=== PATIENT | female | born 1965 | race American Indian/Alaskan Native ===

== ENCOUNTER 2016-12-03 11:28 | Emergency (ER) | payer MEDICAID ==
[2016-12-03 13:52] VITALS: BP 151/73
[2016-12-03] MEDS ORDERED: NORCO 5/325 PO ONE (14:27)
[2016-12-03] MEDS ORDERED: NACL 0.9% IR ONE (15:38)
[2016-12-03] MEDS ORDERED: BOOSTRIX IM ONE (15:38)
[2016-12-03] MEDS ORDERED: XYLOCAINE 1% MPF 5 mL INFILTRATI ONE (15:40)
--- NOTE | 2016-12-03 15:56 | XRay Report ---
RIGHT TIBIA AND FIBULA RADIOGRAPHS INDICATION: Pain, status post direct blow. COMPARISON: 02/21/2015 right ankle views. FINDINGS: AP and lateral radiographs again demonstrate tibial medullary nomi anchored by 2 proximal and 1 distal threaded screws. Stable old mid tibial and fibular shaft deformities. Intact ankle articulation. Advanced knee degenerative changes. Diffuse lower leg soft tissue swelling/edema not excluded. CONCLUSION: No acute right tibia or fibula radiographic abnormality with stable postsurgical and old posttraumatic changes with other findings, including knee degeneration and possible lower leg soft tissue swelling, as described. Please correlate. Thank you for the opportunity to participate in this patient's care.
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
== END 2016-12-03 16:48 | disposition home or self-care (01) ==
LOC: ED 11:28
DX: S81.811A Laceration without foreign body, right lower leg, initial encounter (principal); J45.909 Unspecified asthma, uncomplicated; F17.200 Nicotine dependence, unspecified, uncomplicated; I10 Essential (primary) hypertension; Z90.710 Acquired absence of both cervix and uterus; W45.8XXA Other foreign body or object entering through skin, initial encounter; Y93.89 Activity, other specified; Y99.8 Other external cause status; Y92.59 Other trade areas as the place of occurrence of the external cause
CPT/HCPCS: 90471; 90715

== ENCOUNTER 2017-03-22 18:34 | Emergency (ER) | payer MEDICAID ==
[2017-03-22 19:59] VITALS: BP 112/61
[2017-03-22 23:40] LABS: Basophils % (Auto) 0.5 % (0.0-1.8); Eosinophils # (Auto) 0.1 K/mm3 (0.0-0.4); Eosinophils % (Auto) 2.3 % (0.0-4.3); Hematocrit 44.3 % (30.3-42.9); Hemoglobin 14.8 gm/dl (10.1-14.3); Lymphocytes # (Auto) 2.5 K/mm3 (1.2-5.4); Mean Corpuscular HGB Conc 33 % (30-34); Mean Corpuscular Hemoglobin 33 pg (28-32); Mean Corpuscular Volume 98 fl (79-97); Monocytes # (Auto) 0.4 K/mm3 (0.0-0.8); Monocytes % (Auto) 7.1 % (0.0-7.3); Red Blood Count 4.51 M/mm3 (3.65-5.03); Red Cell Distribution Width 16.4 % (13.2-15.2)
[2017-03-22 23:44] LABS: Platelet Count 210 K/mm3 (140-440)
[2017-03-22 23:55] LABS: Alanine Aminotransferase 40 units/L (7-56); BUN/Creatinine Ratio 14; Blood Urea Nitrogen 10 mg/dL (7-17); Calcium 9.2 mg/dL (8.4-10.2); Hemolysis Index 9
[2017-03-23 00:14] LABS: Bilirubin,Urine MOD (Negative); Blood,Urine NEG (Negative); Color,Urine Amber (Yellow); Hyaline Casts,Urine 13 /LPF; Mucus,Urine 3+ /HPF; Nitrite,Urine NEG (Negative)
[2017-03-23 00:29] LABS: Ictotest,Urine Negative (Negative)
[2017-03-23] MEDS ORDERED: TORADOL IM ONE (00:37)
[2017-03-23] MEDS ORDERED: DELTASONE PO ONE (00:37)
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
== END 2017-03-23 02:10 | disposition home or self-care (01) ==
LOC: ED 18:34
DX: S39.012A Strain of muscle, fascia and tendon of lower back, initial encounter (principal); I10 Essential (primary) hypertension; J45.909 Unspecified asthma, uncomplicated; I25.2 Old myocardial infarction; F17.200 Nicotine dependence, unspecified, uncomplicated; X58.XXXA Exposure to other specified factors, initial encounter; Y93.89 Activity, other specified; Y92.89 Other specified places as the place of occurrence of the external cause; Y99.8 Other external cause status
CPT/HCPCS: 36415; 80053; 81001; 85025; 96372; 99283; J1885; J7512

== ENCOUNTER 2017-10-30 10:39 | Emergency (ER) | payer MEDICAID ==
[2017-10-30] MEDS ORDERED: ASPIRIN PO ONE (11:26)
[2017-10-30 12:07] LABS: Basophils % (Auto) 0.9 % (0.0-1.8); Eosinophils # (Auto) 0.1 K/mm3 (0.0-0.4); Eosinophils % (Auto) 2.5 % (0.0-4.3); Hematocrit 41.1 % (30.3-42.9); Hemoglobin 13.9 gm/dl (10.1-14.3); Lymphocytes % (Auto) 44.8 % (13.4-35.0); Mean Corpuscular HGB Conc 34 % (30-34); Mean Corpuscular Hemoglobin 32 pg (28-32); Mean Corpuscular Volume 96 fl (79-97); Monocytes # (Auto) 0.3 K/mm3 (0.0-0.8); Monocytes % (Auto) 7.4 % (0.0-7.3); Platelet Count 187 K/mm3 (140-440); Red Blood Count 4.28 M/mm3 (3.65-5.03); Red Cell Distribution Width 14.1 % (13.2-15.2)
[2017-10-30 12:26] LABS: BUN/Creatinine Ratio 14; Blood Urea Nitrogen 10 mg/dL (7-17); Calcium 10.4 mg/dL (8.4-10.2); Hemolysis Index 8
--- NOTE | 2017-10-30 15:55 | XRay Report ---
FINAL REPORT EXAM: XR CHEST 1V AP HISTORY: cough COMPARISON: None. TECHNIQUE: Single frontal view of the chest FINDINGS: The cardiomediastinal silhouette is normal in appearance. The lungs are clear without focal consolidation. There is no pleural effusion or pneumothorax. There is no acute soft tissue or osseous abnormality. IMPRESSION: No acute cardiopulmonary disease.
[2017-10-30] MEDS ORDERED: ASPIRIN ONE (15:56)
[2017-10-30] MEDS ORDERED: MORPHINE ONE (15:59)
[2017-10-30] MEDS ORDERED: FIORICET ONE (16:09)
[2017-10-30] MEDS ORDERED: TORADOL ONE (16:17)
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
[2017-10-30] MEDS ORDERED: TORADOL IM ONE (16:26)
[2017-10-30] MEDS ORDERED: FIORICET PO ONE (16:26)
[2017-10-30 16:37] VITALS: BP 143/79
== END 2017-10-30 16:39 | disposition home or self-care (01) ==
LOC: ED 10:39
DX: S80.12XA Contusion of left lower leg, initial encounter (principal); J06.9 Acute upper respiratory infection, unspecified; I11.0 Hypertensive heart disease with heart failure; J45.909 Unspecified asthma, uncomplicated; F17.200 Nicotine dependence, unspecified, uncomplicated; Z90.710 Acquired absence of both cervix and uterus; W18.09XA Striking against other object with subsequent fall, initial encounter; Y93.89 Activity, other specified; Y92.89 Other specified places as the place of occurrence of the external cause; Y99.8 Other external cause status
CPT/HCPCS: 36415; 71045; 80048; 84484; 85025; 93005; 93010; 96372; 99284; J1885; J2270

== ENCOUNTER 2019-07-20 18:59 | Emergency (ER) | payer MEDICAID ==
[2019-07-20 19:07] VITALS: BP 164/88
--- NOTE | 2019-07-20 20:44 | Event Note ---
ED Screening Note ED Screening Note: pt presents with left lower and upper dental pain that began 3 days ago has not seen a dentist in 5 years no fever no n/v/d pmhx htn, cva, [place] no allergies to meds
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
== END 2019-07-20 21:06 | disposition home or self-care (01) ==
LOC: ED 18:59
DX: K02.9 Dental caries, unspecified (principal); K04.7 Periapical abscess without sinus; L98.499 Non-pressure chronic ulcer of skin of other sites with unspecified severity; I25.2 Old myocardial infarction; I10 Essential (primary) hypertension; J45.909 Unspecified asthma, uncomplicated; F17.200 Nicotine dependence, unspecified, uncomplicated; Z90.710 Acquired absence of both cervix and uterus; Z98.890 Other specified postprocedural states; Z79.1 Long term (current) use of non-steroidal anti-inflammatories (NSAID); Z79.2 Long term (current) use of antibiotics; Z79.899 Other long term (current) drug therapy
CPT/HCPCS: 99282

== ENCOUNTER 2020-10-16 12:49 | Emergency (ER) | payer MEDICAID ==
[2020-10-16 13:58] VITALS: BP 122/82
--- NOTE | 2020-10-16 15:44 | Emergency Department Report ---
Chief Complaint: Dental/Oral Stated Complaint: TOOTHACHE PAIN Time Seen by Provider: 10/16/20 15:40 - HPI History of Present Illness: 55-year-old -Chinese female presents to the emergency room requesting to have her teeth pulled. Patient has been seen by a dentist brings in her Panorex and a prescription. Patient states that her dentist is not able to pull her tooth until December 01. Patient complains of pain. Patient is taking nothing for her discomfort. Patient denies any recent trauma. - Exam Vital Signs: Vital Signs 10/16/20 13:57 Temperature 98.3 F Pulse Rate 70 Respiratory 18 Rate Blood Pressure 122/82 O2 Sat by Pulse 98 Oximetry Physical Exam: Patient is alert and oriented x3 no acute distress nontoxic in appearance No swelling of her jaw or gum Effortless breath able to speak in complete sentences Ambulatory without difficulties MSE screening note: Focused history and physical exam performed. Due to findings the following was ordered: 55-year-old -Chinese female presents to the emergency room requesting to have her teeth pulled. Patient has been seen by a dentist brings in her Panorex and a prescription. Patient states that her dentist is not able to pull her tooth until December 01. Patient complains of pain. Patient is taking nothing for her discomfort. Patient denies any recent trauma. Discussed with patient that we do not pull teeth. Discussed with patient to follow-up with her dentist and informed him that she is in discomfort. Handout given of dental referrals for patient. Discussed with patient she can take ibuprofen Tylenol or naproxen for pain. ED Disposition for MSE Disposition: HOME / SELF CARE / HOMELESS Is pt being admited?: No Does the pt Need Aspirin: No Condition: Stable Additional Instructions: Recommend to follow-up her primary dentist. Handout given to patient for community resources for dental. Recommend Tylenol ibuprofen or Aleve for pain Referrals: [facility] [Outside] - 3-5 Days [facility] [Outside] - 3-5 Days [facility] [Outside] - 3-5 Days
== END 2020-10-16 16:11 | disposition home or self-care (01) ==
LOC: ED 12:49
DX: K08.89 Other specified disorders of teeth and supporting structures (principal)
CPT/HCPCS: 99281

== ENCOUNTER 2021-09-08 08:58 | Inpatient (IN) | payer MEDICAID ==
--- NOTE | 2021-09-08 09:33 | Consultation ---
Medications and Allergies Allergies Allergy/AdvReac Type Severity Reaction Status Date / Time No Known Allergies Allergy Verified 09/08/21 09:15 Home Medications Medication Instructions Recorded Confirmed Last Taken Type Lovastatin [Altoprev] 40 mg PO DAILY 01/12/16 01/12/16 Unknown History Amoxicillin/K Clav Tab [Augmentin 1 tab PO Q12HR #20 tab 01/14/16 Unknown Rx 875 mg] Aspirin EC [Halfprin EC] 81 mg PO QDAY #30 tablet.dr 01/14/16 Unknown Rx Clopidogrel [Plavix] 75 mg PO QDAY #30 tablet 01/14/16 Unknown Rx carvediloL [Coreg] 3.125 mg PO BID #60 tablet 01/14/16 Unknown Rx lisinopriL [Zestril TAB] 5 mg PO QDAY #30 tablet 01/14/16 Unknown Rx oxyCODONE /ACETAMINOPHEN [Percocet 1 tab PO BID PRN #10 tablet 01/14/16 Unknown Rx 5/325 mg] cephALEXin [Keflex] 500 mg PO TID #30 capsule 12/03/16 Unknown Rx Cyclobenzaprine [Flexeril] 10 mg PO QHS PRN #20 tablet 03/23/17 Unknown Rx Naproxen [Naprosyn] 500 mg PO BID PRN #30 tablet 03/23/17 Unknown Rx cephALEXin [Keflex] 500 mg PO BID 10 Days #14 capsule 10/30/17 Unknown Rx Acetaminophen [Tylenol] 650 mg PO Q8HR PRN #14 capsule 07/20/19 Unknown Rx Benzocaine/Menthol/Zinc Chlor 1 applicatio MM BID #1 gel..gram. 07/20/19 Unknown Rx [Orajel 3X Mouth Sores Gel] Ibuprofen [Motrin 600 MG tab] 600 mg PO Q8H PRN #14 tablet 07/20/19 Unknown Rx Penicillin Vk [Veetids TAB] 500 mg PO QID 7 Days #56 tablet 07/20/19 Unknown Rx Assessment and Plan [facility] Consult Note # Demographics Consult Type: Acute Stroke Level 2 (4.5-24 hrs) Patient Location: Emergency Room First Name: Carl Last Name: Ted Gender: Female Facility: [facility] Time of Initial Page (Eastern Time): 09/08/2021, 09:04 Time of Return Call (Eastern Time): 09/08/2021, 09:04 # HPI History: F on Tuesday started noting increased weakness (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 Also more slurring of speech. Fall yesterday. Context/Pre-existing conditions: pre-existing motor deficit right # Scores Time of exam and NIHSS ( Time): 09/08/2021, 09:29 Level of Consciousness 1a: [0] = Alert; keenly responsive LOC Questions 1b: [0] = Answers both questions correctly LOC Commands 1c: [0] = Performs both tasks correctly Best Gaze 2: [0] = Normal Visual 3: [0] = No visual loss Facial Palsy 4: [0] = Normal symmetrical movements Motor Arm Left 5a: [0] = No drift Motor Arm Right 5b: [0] = No drift Motor Leg Left 6a: [0] = No drift Motor Leg Right 6b: [1] = Drift Limb Ataxia 7: [0] = Absent Sensory 8: [0] = Normal Best Language 9: [0] = No aphasia Dysarthria 10: [1] = [id number] dysarthria Extinction and Inattention 11: [0] = No abnormality NIHSS Total: 2 # Data Time Head CT personally read by me ( Time): 09/08/2021, 09:[address]: no bleed preliminarily reviewed by me, please refer to radiology read for official reading # Assessment Impression: Altered Mental Status no new focal neurologic deficit can be appreciated, and patient not reporting, though she is weaker and speech is more slurred than baseline she reports. This could be encephalopathy due to medical illness superimposed on prior neurologic deficit making that deficit worse. # Plan Thrombolytic/Intervention: NOT IV Thrombolysis or IA Intervention candidate Thrombolytic Exclusion (< 3 hour window): time of onset unclear Thrombolytic Exclusion: > 4.5 hours Intraarterial Exclusion: gradual onset starting 4d ago reportedly, not clinically consistent with new LVO stroke. Medication: aspirin 81 mg daily start statin with goal of LDL < 70 Other: telemetry monitoring I have discussed my recommendations with the referring provider Additional Recommendations: if no medical etiology found to explain her gradual worsening, or if not improving with medical management as expected, considering my brain to evaluate for new stroke. Disposition: admit # Logistics Telemedicine: Interactive 2 way audio and visual telecommunication technology was utilized during this visit
--- NOTE | 2021-09-08 09:48 | XRay Report ---
CHEST 1 VIEW 09/08/2021 9:32 AM INDICATION / CLINICAL INFORMATION: Stroke symptoms, slurred speech. COMPARISON: One view of the chest from 10/30/2017. FINDINGS: SUPPORT DEVICES: None. HEART / MEDIASTINUM: No significant abnormality. LUNGS / PLEURA: No significant pulmonary abnormality. No significant pleural effusion. No pneumothora x. ADDITIONAL FINDINGS: No significant additional findings. IMPRESSION: 1. No acute abnormality of the chest. Signer Name: Casey Garcia MD Signed: 09/08/2021 9:44 AM Workstation Name: [email or web address]
--- NOTE | 2021-09-08 09:56 | Cat Scan Report ---
NONENHANCED CT SCAN OF THE HEAD: INDICATION / CLINICAL INFORMATION: 55 years Female; stroke like; slurred speech. TECHNIQUE: Routine CT head without contrast. All CT scans at this location are performed using CT dos e reduction for ALARA by means of automated exposure control. 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 ORBITS: No significant abnormality of visualized orbits. SINUSES / MASTOIDS: No significant abnormality of the visualized paranasal sinuses or mastoid air amadou ls. ADDITIONAL FINDINGS: None. IMPRESSION: No intracerebral hemorrhage or stroke mimics Encephalomalacia in the inferior right frontal lobe from old trauma Chronic lacunae in the left basal ganglia; periventricular low-attenuation areas due to chronic small vessel disease Signer Name: Shola Chauhan MD Signed: 09/08/2021 9:49 AM Workstation Name: [id number]
--- NOTE | 2021-09-08 10:57 | Electrocardiograph Report ---
[facility] Test Date: 2021-09-08 Test Time: 10:25:26 Pat Name: USHA SANCHEZ Department: Room: Gender: F [employer]: TV : 1965 Requested By: ELMO MILNER Order Number: [id number] Reading MD: Bear Kessler Measurements Intervals [place] Rate: 53 P: 37 WV: 190 QRS: -1 QRSD: 97 T: 25 QT: 431 QTc: 405 Interpretive Statements Sinus bradycardia No previous ECG available for comparison Electronically Signed On 09-08-2021 10:57:09 EDT by Bear Kessler
[2021-09-08 11:20] LABS: Color,Urine Yellow (Yellow)
[2021-09-08 11:21] LABS: Bilirubin,Urine Negative (Negative); Blood,Urine Negative (Negative)
[2021-09-08 11:22] LABS: PH,Urine 6.5 (5.0-7.0); Protein,Urine <30 mg dL mg/dL (Negative); Urobilinogen,Urine < 2.0 mg/dL (<2.0)
[2021-09-08 11:29] LABS: Hematocrit 34.3 % (30.3-42.9); Hemoglobin 11.8 gm/dl (10.1-14.3); Mean Corpuscular HGB Conc 35 % (30-34); Mean Corpuscular Volume 92 fl (79-97); Platelet Count 204 K/mm3 (140-440); Red Blood Count 3.71 M/mm3 (3.65-5.03); Red Cell Distribution Width 14.1 % (13.2-15.2)
[2021-09-08 11:31] LABS: INR 0.87 (0.87-1.13)
[2021-09-08 11:32] LABS: Partial Thromboplastin Time 29.4 Sec. (24.2-36.6)
[2021-09-08 11:35] LABS: Bacteria,Urine 4+ /HPF (Negative); Hyaline Casts,Urine 7 /LPF; Mucus,Urine 2+ /HPF
[2021-09-08 11:48] LABS: Alanine Aminotransferase 28 units/L (7-56); Albumin 3.6 g/dL (3.9-5); BUN/Creatinine Ratio 20; Blood Urea Nitrogen 16 mg/dL (7-17); Calcium 8.7 mg/dL (8.4-10.2); HDL Cholesterol 74 mg/dL (40-59); Hemolysis Index 8; LDL Cholesterol,Direct 161 mg/dL (50-130)
[2021-09-08 13:03] LABS: Amphetamine Screen,Urine Negative; Benzodiazepines Screen,Urine Negative; Cocaine Screen,Urine Negative; Methadone Screen,Urine Negative; Opiate Screen,Urine Negative
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
[2021-09-08 13:17] LABS: Cannabinoid Screen,Urine Positive
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
[2021-09-08] MEDS ORDERED: oxyCODONE /ACETAMINOPHEN 5-325MG TAB PO PRN (17:25)
[2021-09-08] MEDS ORDERED: CYCLOBENZAPRINE 10 MG TAB PO PRN (17:25)
[2021-09-08] MEDS ORDERED: NON-FORMULARY EACH (Acetaminophen [Tylenol] 325 MG Capsule) PO PRN (17:25)
[2021-09-08] MEDS ORDERED: IBUPROFEN 600 MG TAB PO PRN (17:25)
[2021-09-08] MEDS ORDERED: ACETAMINOPHEN 325 MG TAB PO PRN ×3 (17:43→18:53)
[2021-09-08] MEDS ORDERED: ONDANSETRON 4 MG/2 ML INJ IV PRN (18:53)
[2021-09-08] MEDS ORDERED: MORPHINE 2 MG/1 ML INJ IV PRN (18:59)
[2021-09-08] MEDS ORDERED: SODIUM CHLORIDE 0.9% 1000 ML 1,000 ML IV SCH (19:00)
[2021-09-09] MEDS: ASPIRIN 325 MG TAB PO SCH ×2 (01:32→09:11)
[2021-09-09] MEDS: HEPARIN 5,000 UNIT/1 ML VIAL SUB-Q SCH ×3 (01:33→23:30)
[2021-09-09] MEDS: CLOPIDOGREL 75 MG TAB PO SCH ×2 (01:33→09:12)
[2021-09-09] MEDS: carvediloL 3.125 MG TAB PO SCH ×3 (01:33→23:30)
[2021-09-09] MEDS ORDERED: POTASSIUM CHLORIDE ER 20 MEQ TAB PO NR (06:57)
[2021-09-09] MEDS: FAMOTIDINE 20 MG TAB PO SCH ×3 (07:56→23:30)
[2021-09-09 08:15] LABS: Basophils % (Auto) 0.7 % (0.0-1.8); Eosinophils # (Auto) 0.1 K/mm3 (0.0-0.4); Hematocrit 34.5 % (30.3-42.9); Hemoglobin 11.3 gm/dl (10.1-14.3); Lymphocytes # (Auto) 2.3 K/mm3 (1.2-5.4); Lymphocytes % (Auto) 47.9 % (13.4-35.0); Mean Corpuscular HGB Conc 33 % (30-34); Mean Corpuscular Volume 94 fl (79-97); Monocytes # (Auto) 0.3 K/mm3 (0.0-0.8); Platelet Count 185 K/mm3 (140-440); Red Blood Count 3.66 M/mm3 (3.65-5.03); Red Cell Distribution Width 13.9 % (13.2-15.2)
[2021-09-09 08:52] LABS: Alanine Aminotransferase 32 units/L (7-56); Albumin 3.3 g/dL (3.9-5); Blood Urea Nitrogen 17 mg/dL (7-17); Calcium 8.6 mg/dL (8.4-10.2); Hemolysis Index 2
[2021-09-09 09:10] LABS: BUN/Creatinine Ratio 28
[2021-09-09] MEDS: LISINOPRIL 5 MG TAB PO SCH (09:12)
--- NOTE | 2021-09-09 09:50 | Consultation ---
History of Present Illness Consult date: 09/09/21 Reason for Consult: cva Chief complaint: worsening right-sided weakness w/ slurred speech History of present illness: 55 yo right-handed, female with hx of multiple strokes with residual right-sided weakness, htn, who presents with worsening right-sided weakness with slurring of speech. She notes that her speech has improved this moring but notes still some worse (than baseline) weakness / numbness of her right arm>leg. She notes her right leg dragging at times and unsteadiness on her feet. Past History Past Medical History: hypertension, stroke Past Surgical History: Other (right hip surgery;) Social history: no significant social history, other (no current tobacco but positive remote tobacco many years ago; no alcohol; no recreational drugs;) Family history: no significant family history, hypertension Medications and Allergies Allergies Allergy/AdvReac Type Severity Reaction Status Date / Time No Known Allergies Allergy Verified 09/08/21 09:15 Home Medications Medication Instructions Recorded Confirmed Last Taken Type Amlodipine Besylate 5 mg PO DAILY 09/09/21 09/09/21 09/08/21 08:00 History Amlodipine Besylate [Norvasc] 5 mg PO DAILY 09/09/21 09/09/21 09/08/21 08:00 History Calcium Acetate 1 cap PO DAILY 09/09/21 09/09/21 09/08/21 08:00 History Coreg 3.125 mg BID 09/09/21 09/09/21 09/08/21 17:00 History Furosemide [Lasix TAB] 40 mg PO DAILY 09/09/21 09/09/21 09/08/21 17:00 History Ibuprofen [Motrin 800 MG tab] 800 mg PO TID 09/09/21 09/09/21 09/08/21 17:00 History Loratadine 10 mg PO DAILY 09/09/21 09/09/21 09/08/21 08:00 History Meloxicam 15 mg PO DAILY 09/09/21 09/09/21 09/08/21 17:00 History Metformin HCl 1 tab PO DAILY 09/09/21 09/09/21 09/08/21 08:00 History Promethazine Dm (Nf) 10 mg PO Q6HR 09/09/21 09/09/21 09/08/21 17:00 History Terbinafine 250 mg PO DAILY 09/09/21 09/09/21 09/08/21 08:00 History Vitamin D (Nf) 50,000 units PO DAILY 09/09/21 09/09/21 09/08/21 08:00 History traMADoL [Ultram] 50 mg PO QID PRN 09/09/21 09/09/21 09/08/21 17:00 History Active Meds: Active Medications Acetaminophen (Acetaminophen 325 Mg Tab) 650 mg PO Q4H PRN PRN Reason: Pain MILD(1-3)/Fever >100.5/URBINA Aspirin (Aspirin 325 Mg Tab) 325 mg PO QDAY [facility] Last Admin: 09/09/21 09:11 Dose: 325 mg Atorvastatin Calcium (Atorvastatin 40 Mg Tab) 40 mg PO QHS [facility] Last Admin: 09/09/21 07:56 Dose: Not Given Carvedilol (Carvedilol 3.125 Mg Tab) 3.125 mg PO BID [facility] Last Admin: 09/09/21 09:11 Dose: 3.125 mg Clopidogrel Bisulfate (Clopidogrel 75 Mg Tab) 75 mg PO QDAY [facility] Last Admin: 09/09/21 09:12 Dose: 75 mg Cyclobenzaprine HCl (Cyclobenzaprine 10 Mg Tab) 10 mg PO QHS PRN PRN Reason: Muscle Spasm Famotidine (Famotidine 20 Mg Tab) 20 mg PO BID [facility] Last Admin: 09/09/21 09:12 Dose: 20 mg Heparin Sodium (Porcine) (Heparin 5,000 Unit/1 Ml Vial) 5,000 unit SUB-Q Q12HR [facility] Last Admin: 09/09/21 09:12 Dose: 5,000 unit Ceftriaxone Sodium (Rocephin/Ns 1 Gm/50 Ml) 1 gm in 50 mls @ 100 mls/hr IV Q24H [facility]; Protocol Stop: 09/11/21 09:29 Ibuprofen (Ibuprofen 600 Mg Tab) 600 mg PO Q8H PRN PRN Reason: Pain, Mild (1-3) Lisinopril (Lisinopril 5 Mg Tab) 5 mg PO QDAY [facility] Last Admin: 09/09/21 09:12 Dose: 5 mg Lorazepam (Lorazepam 2 Mg Tab) 2 mg PO NOW [facility] Last Admin: 09/09/21 09:36 Dose: 2 mg Morphine Sulfate (Morphine 2 Mg/1 Ml Inj) 2 mg IV Q4H PRN PRN Reason: Pain, Moderate (4-6) Ondansetron HCl (Ondansetron 4 Mg/2 Ml Inj) 4 mg IV Q8H PRN PRN Reason: Nausea And Vomiting Oxycodone/Acetaminophen (Oxycodone /Acetaminophen 5-325mg Tab) 1 tab PO BID PRN PRN Reason: Pain, Moderate (4-6) Potassium Chloride (Potassium Chloride Er 20 Meq Tab) 20 meq PO ONCE NR Stop: 09/09/21 12:00 Sodium Chloride (Sodium Chloride 0.9% 10 Ml Flush Syringe) 10 ml IV BID [facility] Last Admin: 09/09/21 09:12 Dose: 10 ml Sodium Chloride (Sodium Chloride 0.9% 10 Ml Flush Syringe) 10 ml IV PRN PRN PRN Reason: LINE FLUSH Sodium Chloride (Sodium Chloride 0.9% 10 Ml Flush Syringe) 10 ml IV PRN PRN PRN Reason: LINE FLUSH Review of Systems All systems: negative (as per hpi;) Physical Examination - Vital Signs Vital Signs: Vital Signs Temp Pulse Resp BP Pulse Ox 98.1 F 54 L 15 171/77 99 09/08/21 09:56 09/08/21 09:56 09/08/21 09:56 09/08/21 09:56 09/08/21 09:56 - Physical Exam Narrative exam: ?left decreased nlf (droop) 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-/5 strength Gen: nad, well-nourished; Head: normocephalic; Eyes: no gaze deviation; no ptosis; ENT: normal vocalization; CVS: warm and well-perfused; Pulm: no respiratory distress; GI: appears non-distended; Ext: no cyanosis appreciated at distal extremities; Skin: no acute rash at distal extremities; Heme: no pathologic ecchymosis appreciated at distal extremities; Neuro: alert, oriented to name, age, year, not month (September), no dysarthria, no aphasia, CN 2 - PERRL, visual rodas grossly intact, CN 3, 4, 6 - EOMI, CN 5 - facial sensation symmetric to light touch, CN 7 - facial movement with decreased left NLF, CN 8 - hearing grossly intact, CN 9, 10 - uvula midline, CN 11 symmetric shoulder movement, CN 12 - tongue midline; Motor - at least 4-/5 at BUEs distally and at right leg o/w 4+/5 at all other exts; Sensory - light touch symmetric, Cerebellar - fnf /hts intact, Gait - deferred secondary to fall risk; NIHSS (1a.) Level of Consciousness:0 (1b.) LOC Questions:1 (1c.) LOC Commands:0 (2.) Best Gaze:0 (3.) Visual:0 (4.) Facial Palsy:1 (5a.) Motor Arm, Left:0 (5b.) Motor Arm, Right:0 (6a.) Motor Leg, Left:0 (6b.) Motor Leg, Right:0 (7.) Limb Ataxia:0 (8.) Sensory:0 (9.) Best Language:0 (10.) Dysarthria:0 (11.) Extinction and Inattention:0 NIHSS Total Score: 2 Results - Laboratory Findings CBC and BMP: 09/09/21 05:08 09/10/21 04:12 Abnormal Lab Findings: Abnormal Labs 09/08/21 09/08/21 09/08/21 09:29 09:29 09:48 MCHC 35 H Lymph % (Auto) Potassium 3.3 L Chloride Glucose 109 H POC Glucose Total Protein 6.0 L Albumin 3.6 L Cholesterol 230 H LDL Cholesterol Direct 161 H HDL Cholesterol 74 H Urine WBC (Auto) 34.0 H U Epithel Cells (Auto) 57.0 H 09/08/21 09/08/21 09/09/21 09:55 17:41 05:08 MCHC Lymph % (Auto) 47.9 H Potassium Chloride Glucose POC Glucose 66 L 126 H Total Protein Albumin Cholesterol LDL Cholesterol Direct HDL Cholesterol Urine WBC (Auto) U Epithel Cells (Auto) 09/09/21 05:08 MCHC Lymph % (Auto) Potassium Chloride 111.6 H Glucose POC Glucose Total Protein 5.6 L Albumin 3.3 L Cholesterol LDL Cholesterol Direct HDL Cholesterol Urine WBC (Auto) U Epithel Cells (Auto) Assessment and Plan 55 yo right-handed, female with hx of multiple strokes with residual right-sided weakness, htn, who presents with worsening right-sided weakness with slurring of speech. She notes that her speech has improved this moring but notes still some worse (than baseline) weakness / numbness of her right arm>leg. 1. Acute Ischemic Stroke vs. Recrudescence of Old CVA: ASA 325 mg PO qday, MRI Brain w/ w/o contrast, TTEcho, CUS, confirm LDL/TSH/Covid-19/UDS/UA, telemetry, NIHSS q4 hours; SBP goal 160-200 mmHg and DBP 80-100 mmHg until MR results available. Statin therapy for a goal LDL of 70, when patient passes swallow evaluation. PT/OT/ST/Swallow evaluation. Long-term risk-factor modification, including a strict diet/exercise regimen for secondary stroke prophylaxis. Stroke education prior to discharge. 2. Hypertension - goal SBP 160-200 mmHg and DBP 80-100 mmHg until MR results available. 3. Acute on Chronic Right-sided weakness - pt/ot evaluation/monitoring. 4. Right-sided Numbness - pt/ot evaluation/monitoring. 5. Unsteady Gait - pt/ot evaluation/monitoring. Darryn Perez MD Neurology [id number]
[2021-09-09] MEDS ORDERED: LORazepam 2 MG/ML VIAL IV SCH (10:00)
[2021-09-09] MEDS ORDERED: ASPIRIN EC 81 MG TAB PO SCH (10:00)
[2021-09-09] MEDS ORDERED: LORazepam 2 MG TAB PO SCH (10:00)
[2021-09-09] MEDS ORDERED: NON-FORMULARY EACH (Lovastatin [Altoprev] 40 MG Tab.Er.24h) PO SCH (10:00)
--- NOTE | 2021-09-09 13:24 | Vascular Lab Report ---
"DUPLEX DOPPLER ULTRASOUND CAROTID, BILATERAL INDICATION / CLINICAL INFORMATION: cva. COMPARISON: None available. FINDINGS: RIGHT CAROTID: - PLAQUE ESTIMATE (%): < 50% - CCA velocity: 64 cm/sec. - ICA peak systolic velocity: 72 cm/sec. - ICA/CCA PSV Ratio: 1.1 Right Vertebral Artery: Antegrade flow. LEFT CAROTID: - PLAQUE ESTIMATE: > 50% - CCA velocity: 53 cm/sec. - ICA peak systolic velocity: 108 cm/sec. - ICA/CCA PSV Ratio: 2.04 Left Vertebral Artery: Antegrade flow. IMPRESSION: 1. Right Internal Carotid Artery: Less than 50% diameter stenosis. 2. Left Internal Carotid Artery: 50-69% diameter stenosis. Velocity criteria are extrapolated from diameter data as defined by the Society of Radiologists [place] [facility] [facility] Consensus Conference, Radiology 2003; 229;[id number]. Degree of || ICA PSV || Plaque || ICA/CCA Stenosis (%) || (cm/sec) || estimate (%) || PSV Ratio Normal ............. || ...<125........... || ...None......... || ...<2.0 <50................... || ...<125........... || ......<50......... || ...<2.0 50-69................ || ..125-230...... || ......>50......... || 2.0-4.0 >70 but <100... || >230.............. || .......>50........ || ...>4.0 Near occlusion || High/low/none || ...visible....... || variable Total occlusion || ....None........... || ..no lumen... || ....N/A Signer Name: Kartik Foote MD Signed: 09/09/2021 1:20 PM Workstation Name: [facility] [id number]"
[2021-09-09] MEDS: cefTRIAXone/NS 1 GM/50 ML 1 GM/50 ML BAG IV SCH (13:28)
--- NOTE | 2021-09-09 16:24 | Progress Note ---
Assessment and Plan Assessment and plan: #Possible acute ischemic CVA #History of multiple ischemic CVAs #Medicine noncompliance Status post aspirin 325 mg x 1 in the ED. Continue aspirin 81 mg daily + Plavix 75 mg daily + atorvastatin [address] head noncontrast. Pending MRI brain without contrast. Carotid Doppler ultrasound revealing <50% diameter stenosis of right ICA and 50-69% diameter stenosis in left ICA. Neurology consulted; pending recs Pending TTE to evaluate for possible atrial fibrillation or PFO. Physical therapy, Occupational Therapy, and speech therapy consulted. #Acute cystitis without hematuria Urinalysis revealing positive nitrite, trace leukocyte esterase, WBC 34, 4+ bacteria Urine culture revealing gram-negative rods. Pending speciation. Continue Rocephin 1 g daily (started 09/09/2021). #Hypokalemiaresolved #Hypertension - home medications: Amlodipine 5 mg daily, Coreg 3.125 mg twice daily, p.o. Lasix 40 mg daily - current medications: Currently holding to allow permissive hypertension in the setting of possible acute ischemic CVA. - SBP goal <160 and DBP goal <90 while inpatient - continue to monitor #Non-insulin dependent type II diabetes mellitus - hemoglobin A1c: Pending - home regimen: Metformin 1 tab twice daily - current regimen: Moderate SSI - blood glucose goal 140-180 while inpatient - continue to monitor #Mild protein caloric malnutrition Albumin 3.3 Starting dietary supplementation #Morbid obesity #Weight loss counseling #Exercise counseling - BMI 37.4 - Counseled patient on the importance of weight loss, incorporating exercise, and dietary changes (lean meats, fresh fruits and vegetables, and water intake). Patient expresses understanding. - Time: +15 min #Polysubstance dependence -Patient engages in the following substances: Marijuana positive in UDS -Counseled patient about the importance of cessation of substance abuse. Offered resources to help with quitting. Patient expresses understanding. -Time: +15 mins #Advanced care planning -Disease education conducted, care plan discussed, diagnoses discussed, prognosis discussed, and patient acknowledges understanding with care plan -Time: +30 min Disposition Plan: Continue medical management Total Time Spent with Patient (Minutes): 45 minutes History Interval history: No acute events overnight. Hospitalist Physical - Constitutional Vitals: Temp Pulse Resp BP Pulse Ox 98.3 F 68 14 113/64 99 09/09/21 04:21 09/09/21 08:40 07/27/22 08:40 09/09/21 08:40 09/09/21 12:00 General appearance: Present: no acute distress, well-nourished, obese - EENT Eyes: Present: PERRL, EOM intact ENT: hearing intact, clear oral mucosa, dentition normal - Neck Neck: Present: supple, normal ROM - Respiratory Respiratory effort: normal Respiratory: bilateral: CTA - Cardiovascular Rhythm: regular Heart Sounds: Present: S1 & S2 - Extremities Extremities: no ischemia, pulses intact, pulses symmetrical, No edema, normal temperature, normal color Peripheral Pulses: within normal limits - Abdominal General gastrointestinal: soft, non-tender, non-distended, normal bowel sounds - Integumentary Integumentary: Present: clear, warm, dry - Psychiatric Psychiatric: appropriate mood/affect, intact judgment & insight, cooperative - Neurologic Neurologic: CNII-XII intact, other (Right-sided weakness) - Allied Health Allied health notes reviewed: nursing HEART Score - HEART Score Troponin: Troponin T < 0.010 ng/mL (0.00-0.029) 09/08/21 09:29 Results - Labs CBC & Chem 7: 09/09/21 05:08 09/09/21 05:08 Labs: Laboratory Last Values WBC 4.9 K/mm3 (4.5-11.0) 09/09/21 05:08 RBC 3.66 M/mm3 (3.65-5.03) 09/09/21 05:08 Hgb 11.3 gm/dl (10.1-14.3) 09/09/21 05:08 Hct 34.5 % (30.3-42.9) 09/09/21 05:08 MCV 94 fl (79-97) 09/09/21 05:08 MCH 31 pg (28-32) 09/09/21 05:08 MCHC 33 % (30-34) 09/09/21 05:08 RDW 13.9 % (13.2-15.2) 09/09/21 05:08 Plt Count 185 K/mm3 (140-440) 09/09/21 05:08 Lymph % (Auto) 47.9 % (13.4-35.0) H 09/09/21 05:08 [place] % (Auto) 6.0 % (0.0-7.3) 09/09/21 05:08 Eos % (Auto) 2.0 % (0.0-4.3) 09/09/21 05:08 Baso % (Auto) 0.7 % (0.0-1.8) 09/09/21 05:08 Lymph # (Auto) 2.3 K/mm3 (1.2-5.4) 09/09/21 05:08 [place] # (Auto) 0.3 K/mm3 (0.0-0.8) 09/09/21 05:08 Eos # (Auto) 0.1 K/mm3 (0.0-0.4) 09/09/21 05:08 Baso # (Auto) 0.0 K/mm3 (0.0-0.1) 09/09/21 05:08 Seg Neutrophils % 43.4 % (40.0-70.0) 09/09/21 05:08 Seg Neutrophils # 2.1 K/mm3 (1.8-7.7) 09/09/21 05:08 PT 12.8 Sec. (12.2-14.9) 09/08/21 09:29 INR 0.87 (0.87-1.13) 09/08/21 09:29 APTT 29.4 Sec. (24.2-36.6) 09/08/21 09:29 Sodium 143 mmol/L (137-145) 09/09/21 05:08 Potassium 3.8 mmol/L (3.6-5.0) 09/09/21 05:08 Chloride 111.6 mmol/L (98-107) H 09/09/21 05:08 Carbon Dioxide 24 mmol/L (22-30) 09/09/21 05:08 Anion Gap 11 mmol/L 09/09/21 05:08 BUN 17 mg/dL (7-17) 09/09/21 05:08 Creatinine 0.6 mg/dL (0.6-1.2) 09/09/21 05:08 Estimated GFR > 60 ml/min 09/09/21 05:08 BUN/Creatinine Ratio 28 % 09/09/21 05:08 Glucose 85 mg/dL (65-100) 09/09/21 05:08 POC Glucose 126 mg/dL (70-105) H 09/08/21 17:41 Hemoglobin A1c 5.5 % (4-6) 09/09/21 08:18 Calcium 8.6 mg/dL (8.4-10.2) 09/09/21 05:08 Magnesium 1.90 mg/dL (1.7-2.3) 09/08/21 09:29 Total Bilirubin < 0.20 mg/dL (0.1-1.2) 09/09/21 05:08 AST 34 units/L (5-40) 09/09/21 05:08 ALT 32 units/L (7-56) 09/09/21 05:08 Alkaline Phosphatase 87 units/L (35-129) 09/09/21 05:08 Troponin T < 0.010 ng/mL (0.00-0.029) 09/08/21 09:29 NT-Pro-B Natriuret Pep 146.7 pg/mL (0-900) 09/08/21 09:29 Total Protein 5.6 g/dL (6.3-8.2) L 09/09/21 05:08 Albumin 3.3 g/dL (3.9-5) L 09/09/21 05:08 Albumin/Globulin Ratio 1.4 % 09/09/21 05:08 Triglycerides 104 mg/dL (2-149) 09/08/21 09:29 Cholesterol 230 mg/dL (50-199) H 09/08/21 09:29 LDL Cholesterol Direct 161 mg/dL (50-130) H 09/08/21 09:29 HDL Cholesterol 74 mg/dL (40-59) H 09/08/21 09:29 Cholesterol/HDL Ratio 3.10 % 09/08/21 09:29 Urine Color Yellow (Yellow) 09/08/21 09:48 Urine Turbidity Cloudy (Clear) 09/08/21 09:48 Urine pH 6.5 (5.0-7.0) 09/08/21 09:48 Ur Specific [place] 1.015 (1.003-1.030) 09/08/21 09:48 Urine Protein <30 mg dl mg/dL (Negative) 09/08/21 09:48 Urine Glucose (UA) Negative mg/dL (Negative) 09/08/21 09:48 Urine Ketones Negative mg/dL (Negative) 09/08/21 09:48 Urine Blood Negative (Negative) 09/08/21 09:48 Urine Nitrite Positive (Negative) 09/08/21 09:48 Urine Bilirubin Negative (Negative) 09/08/21 09:48 Urine Urobilinogen < 2.0 mg/dL (<2.0) 09/08/21 09:48 Ur Leukocyte Esterase Trace (Negative) 09/08/21 09:48 Urine WBC (Auto) 34.0 /HPF (0.0-6.0) H 09/08/21 09:48 Urine RBC (Auto) 16.0 /HPF (0.0-6.0) 09/08/21 09:48 U Epithel Cells (Auto) 57.0 /HPF (0-13.0) H 09/08/21 09:48 Urine Bacteria (Auto) 4+ /HPF (Negative) 09/08/21 09:48 Hyaline Casts 7 /LPF 09/08/21 09:48 Urine Mucus 2+ /HPF 09/08/21 09:48 Urine Opiates Screen Negative 09/08/21 09:48 Urine Methadone Screen Negative 09/08/21 09:48 Ur Barbiturates Screen Negative 09/08/21 09:48 Ur Phencyclidine Scrn Negative 09/08/21 09:48 Ur Amphetamines Screen Negative 09/08/21 09:48 U Benzodiazepines Scrn Negative 09/08/21 09:48 Urine Cocaine Screen Negative 09/08/21 09:48 U Marijuana (THC) Screen Positive 09/08/21 09:48 Drugs of Abuse Note Disclamer 09/08/21 09:48 Microbiology: Microbiology 09/09/21 08:18 Peripheral/Venous Blood Culture - Preliminary Culture in Progress 09/09/21 09:18 Peripheral/Venous Blood Culture - Preliminary Culture in Progress 09/08/21 09:48 Urine,Clean Catch Urine Culture - Preliminary Gram Negative Trent Solano/IV: Voiding Method Toilet Active Medications - Current Medications Current Medications: Generic Name Dose Route Start Last Admin Trade Name Freq PRN Reason Stop Dose Admin Acetaminophen 650 mg 09/08/21 18:53 Acetaminophen 325 Mg Tab PO Q4H PRN Pain MILD(1-3)/Fever >100.5/URBINA Aspirin 325 mg 09/08/21 20:00 09/09/21 09:11 Aspirin 325 Mg Tab PO 325 mg QDAY [facility] Administration Atorvastatin Calcium 40 mg 09/08/21 22:00 09/09/21 07:56 Atorvastatin 40 Mg Tab PO Not Given QHS [facility] Carvedilol 3.125 mg 09/08/21 22:00 09/09/21 09:11 Carvedilol 3.125 Mg Tab PO 3.125 mg BID [facility] Administration Clopidogrel Bisulfate 75 mg 09/08/21 18:00 09/09/21 09:12 Clopidogrel 75 Mg Tab PO 75 mg QDAY [facility] Administration Cyclobenzaprine HCl 10 mg 09/08/21 17:25 Cyclobenzaprine 10 Mg Tab PO QHS PRN Muscle Spasm Famotidine 20 mg 09/08/21 22:00 09/09/21 09:12 Famotidine 20 Mg Tab PO 20 mg BID [facility] Administration Heparin Sodium (Porcine) 5,000 unit 09/08/21 22:00 09/09/21 09:12 Heparin 5,000 Unit/1 Ml Vial SUB-Q 5,000 unit Q12HR [facility] Administration Ceftriaxone Sodium 1 gm in 50 mls @ 100 mls/hr 09/09/21 09:00 09/09/21 13:28 Rocephin/Ns 1 Gm/50 Ml IV 09/11/21 09:29 100 mls/hr Q24H [facility] Administration Protocol Ibuprofen 600 mg 09/08/21 17:25 Ibuprofen 600 Mg Tab PO Q8H PRN Pain, Mild (1-3) Lisinopril 5 mg 09/09/21 10:00 09/09/21 09:12 Lisinopril 5 Mg Tab PO 5 mg QDAY [facility] Administration Lorazepam 2 mg 09/09/21 10:00 09/09/21 09:36 Lorazepam 2 Mg Tab PO 2 mg NOW [facility] Administration Morphine Sulfate 2 mg 09/08/21 18:59 Morphine 2 Mg/1 Ml Inj IV Q4H PRN Pain, Moderate (4-6) Ondansetron HCl 4 mg 09/08/21 18:53 Ondansetron 4 Mg/2 Ml Inj IV Q8H PRN Nausea And Vomiting Oxycodone/Acetaminophen 1 tab 09/08/21 17:25 Oxycodone /Acetaminophen 5-325mg Tab PO BID PRN Pain, Moderate (4-6) Sodium Chloride 10 ml 09/08/21 22:00 09/09/21 09:12 Sodium Chloride 0.9% 10 Ml Flush Syringe IV 10 ml BID [facility] Administration Sodium Chloride 10 ml 07/26/22 18:53 Sodium Chloride 0.9% 10 Ml Flush Syringe IV PRN PRN LINE FLUSH
--- NOTE | 2021-09-09 17:57 | Magnetic Resonance Report ---
MR brain wo con INDICATION / CLINICAL INFORMATION: 55 years Female; stroke. TECHNIQUE: Multiplanar, multisequence MR images of the brain were obtained. Note, no FLAIR sequence was performe d. Motion artifact. COMPARISON: CT-09/08/2021 FINDINGS: BRAIN / INTRACRANIAL CONTENTS: 8 mm focus of acute/subacute ischemia seen in the stewart, leftward of mi dline. Older lacunar infarct is seen in the stewart rightward of midline. There are also lacunar infarcts in th e left basal ganglia, which may have had a hemorrhagic component, given the decreased gradient echo T 2 signal identified in this region. Old focus of microhemorrhage versus small cavernous malformation in the posterior putamen on the righ t. Encephalomalacia seen anteriorly in the right frontal lobe and minimally in the anteromedial left fro ntal lobe-please clinically correlate. Would question prior trauma Otherwise, no acute hemorrhage, mass effect, midline shift, hydrocephalus, or acute, large territori al infarct. Mild, diffuse cerebral and cerebellar atrophy noted. There are moderate areas of increased signal intensity on T2 imaging in the white matter of the cereb ral hemispheres. These are nonspecific findings and may be related to microangiopathy (hypertension, diabetes, atherosclerosis), given the patient's age. CRANIOCERVICAL JUNCTION: No significant abnormality. VASCULAR FLOW-VOIDS: No significant abnormality. ORBITS: No significant abnormality of visualized orbits. SINUSES / MASTOIDS: No significant abnormality in the visualized paranasal sinuses or mastoid air amadou ls. ADDITIONAL FINDINGS: None. IMPRESSION: 1. Acute/early subacute ischemia in the stewart leftward of midline. No signs of hemorrhagic transformat ion. Signer Name: Jay Ewing MD, III Signed: 09/09/2021 5:52 PM Workstation Name: [id number]
[2021-09-10 04:47] LABS: Blood Urea Nitrogen 15 mg/dL (7-17); Calcium 8.6 mg/dL (8.4-10.2); Hemolysis Index 50
[2021-09-10 04:48] LABS: BUN/Creatinine Ratio 25
[2021-09-10] MEDS: FAMOTIDINE 20 MG TAB PO SCH (10:25)
[2021-09-10] MEDS: CLOPIDOGREL 75 MG TAB PO SCH (10:25)
[2021-09-10] MEDS: LISINOPRIL 5 MG TAB PO SCH (10:25)
[2021-09-10] MEDS: ASPIRIN 325 MG TAB PO SCH (10:26)
[2021-09-10] MEDS: HEPARIN 5,000 UNIT/1 ML VIAL SUB-Q SCH (10:26)
[2021-09-10] MEDS: carvediloL 3.125 MG TAB PO SCH (10:26)
[2021-09-10] MEDS: cefTRIAXone/NS 1 GM/50 ML 1 GM/50 ML BAG IV SCH (10:27)
[2021-09-10 12:55] VITALS: BP 134/55
--- NOTE | 2021-09-10 13:04 | Discharge Summary ---
Providers - Providers Date of Admission: 09/08/21 18:53 Date of discharge: 09/10/21 Attending physician: MATT DE LA GARZA MD 09/08/21 18:59 Consult to Physician [CONS] Routine Comment: Consulting Provider: NEO EGAN Physician Instructions: Reason For Exam: ??CVA 09/08/21 19:16 Occupational Therapy Evaluate and Treat [CONS] Routine Comment: Reason For Exam: Neuro deficits Physical Therapy Evaluation and Treat [CONS] Routine Comment: Reason For Exam: Neuro deficits Primary care physician: AVE REGALADO Hospitalization Reason for admission: Acute ischemic CVA Condition: Stable Pertinent studies: Reviewed. Procedures: None. Hospital course: Patient is a 55-year-old female past medical history of hypertension, hyperlipidemia, history of CVA x3, medication noncompliance, morbid obesity who presented to the ED with complaints of right-sided weakness affecting her upper and lower extremity as well as worsened dysarthria that had started the Tuesday prior to presentation. The patient endorsed falling at home the day prior to presentation due to weakness in her right lower extremity. In the ED, the patient was found to be hemodynamically stable but hypertensive with a blood pressure 171/77. Patient underwent CT head noncontrast that was found to be unremarkable. Patient also underwent TTE (09/08/2021) revealing EF 55-60% with normal-sized LV, normal LV systolic function, mild diastolic dysfunction, no PFO, and RVSP of 23 mmHg. MRI brain revealed "8 mm focus of acute/subacute ischemia seen in the stewart, leftward of midline". Patient was evaluated by physical therapy recommended subacute rehab; however, the patient's insurance is not sufficient for subacute rehab placement. The patient will be discharging home with home health physical therapy. The patient was counseled at length about the importance of medication compliance, and the patient expressed understanding. Patient was also found to have acute cystitis without hematuria that was treated with Rocephin 1 g daily. Patient will be discharging home with Cipro 500 mg every 24 hours to complete a 3-day course of antibiotics. Patient is medically clear for discharge. Disposition: HOME / SELF CARE / HOMELESS Final Discharge Diagnosis (Prints w/discharge instructions): Acute ischemic CVA, history of multiple ischemic CVAs, medication noncompliance, acute cystitis without hematuria, hypokalemia, hypertension, noninsulin-dependent type 2 diabetes mellitus, mild protein caloric malnutrition, morbid obesity, polysubstance dependence. Time spent for discharge: 45 min Core Measure Documentation - Palliative Care Palliative Care/ Comfort Measures: Not Applicable - Core Measures Any of the following diagnoses?: stroke - Stroke Discharge Requirements Statin for LDL = or >70 mg/dl on DC: Yes Anticoag for atrial fib/atrial flutter: Not Applicable Reason for no anticoag for AF/F on DC: Not Indicated Antithrombotic for ischemic stroke: Yes Exam - Constitutional Vitals: Temp Pulse Resp BP Pulse Ox 97.4 F L 62 18 134/55 89 09/10/21 12:52 09/10/21 12:52 09/10/21 12:52 09/10/21 12:52 09/10/21 12:52 General appearance: Present: no acute distress, well-nourished, obese, other (Dysarthria) - EENT Eyes: Present: PERRL ENT: hearing intact, clear oral mucosa, dentition normal - Neck Neck: Present: supple, normal ROM - Respiratory Respiratory effort: normal Respiratory: bilateral: CTA - Cardiovascular Rhythm: regular Heart Sounds: Present: S1 & S2 - Extremities Extremities: no ischemia, pulses intact, pulses symmetrical, No edema, normal temperature, normal color Peripheral Pulses: within normal limits - Abdominal General gastrointestinal: Present: soft, non-tender, non-distended, normal bowel sounds Female genitourinary: Present: deferred - Rectal Rectal Exam: deferred - Integumentary Integumentary: Present: clear, warm, dry - Musculoskeletal Musculoskeletal: right sided weakness - Psychiatric Psychiatric: appropriate mood/affect, cooperative, other (Limited insight regarding overall medical condition) - Neurologic Neurologic: CNII-XII intact, moves all extremities - Allied Health Allied health notes reviewed: nursing Plan Activity: advance as tolerated Diet: low salt, diabetic Additional Instructions: Patient is a 55-year-old female past medical history of hypertension, hyperlipidemia, history of CVA x3, medication noncompliance, morbid obesity who presented to the ED with complaints of right-sided weakness affecting her upper and lower extremity as well as worsened dysarthria that had started the Tuesday prior to presentation. The patient endorsed falling at home the day prior to presentation due to weakness in her right lower extremity. In the ED, the patient was found to be hemodynamically stable but hypertensive with a blood pressure 171/77. Patient underwent CT head noncontrast that was found to be unremarkable. Patient also underwent TTE (09/08/2021) revealing EF 55-60% with normal-sized LV, normal LV systolic function, mild diastolic dysfunction, no PFO, and RVSP of 23 mmHg. MRI brain revealed "8 mm focus of acute/subacute ischemia seen in the stewart, leftward of midline". Patient was evaluated by physical therapy recommended subacute rehab; however, the patient's insurance is not sufficient for subacute rehab placement. The patient will be discharging home with home health physical therapy. The patient was counseled at length about the importance of medication compliance, and the patient expressed understanding. Patient was also found to have acute cystitis without hematuria that was treated with Rocephin 1 g daily. Patient will be discharging home with Cipro 500 mg every 24 hours to complete a 3-day course of antibiotics. Patient is medically clear for discharge. Care Plan Goals: Patient is medically clear for discharge. Assessment: Patient is a 55-year-old female past medical history of hypertension, hyperlipidemia, history of CVA x3, medication noncompliance, morbid obesity who presented to the ED with complaints of right-sided weakness affecting her upper and lower extremity as well as worsened dysarthria that had started the Tuesday prior to presentation. The patient endorsed falling at home the day prior to presentation due to weakness in her right lower extremity. In the ED, the patient was found to be hemodynamically stable but hypertensive with a blood pressure 171/77. Patient underwent CT head noncontrast that was found to be unremarkable. Patient also underwent TTE (09/08/2021) revealing EF 55-60% with normal-sized LV, normal LV systolic function, mild diastolic dysfunction, no PFO, and RVSP of 23 mmHg. MRI brain revealed "8 mm focus of acute/subacute ischemia seen in the stewart, leftward of midline". Patient was evaluated by physical therapy recommended subacute rehab; however, the patient's insurance is not sufficient for subacute rehab placement. The patient will be discharging home with home health physical therapy. The patient was counseled at length about the importance of medication compliance, and the patient expressed understanding. Patient was also found to have acute cystitis without hematuria that was treated with Rocephin 1 g daily. Patient will be discharging home with Cipro 500 mg every 24 hours to complete a 3-day course of antibiotics. Patient is medically clear for discharge. Follow up with: AVE REGALADO MD [Primary Care Provider] - 7 Days Forms: Work/School Release Form Prescriptions: AtorvaSTATin [Lipitor] 40 mg PO QHS #30 tablet Amlodipine Besylate 5 mg PO DAILY #30 tab Aspirin 81 mg PO QDAY #30 tablet carvediloL [Coreg] 3.125 mg PO BID #60 tablet Furosemide [Lasix TAB] 40 mg PO DAILY #30 tab Clopidogrel [Plavix] 75 mg PO QDAY #30 tablet lisinopriL [Zestril TAB] 5 mg PO QDAY #30 tablet
== END 2021-09-10 16:50 | disposition home health service (06) | DRG 65 ==
LOC: ED 08:58 → 4A 18:53
PROVIDERS: ADMIT Internal Medicine; ATTEND Student in an Organized Health Care Education/Training Program
DX: I63.9 Cerebral infarction, unspecified (principal); E44.1 Mild protein-calorie malnutrition; N30.00 Acute cystitis without hematuria; E87.6 Hypokalemia; E66.01 Morbid (severe) obesity due to excess calories; E11.9 Type 2 diabetes mellitus without complications; R47.1 Dysarthria and anarthria; F17.200 Nicotine dependence, unspecified, uncomplicated; I10 Essential (primary) hypertension; Z68.37 Body mass index [BMI] 37.0-37.9, adult; Z90.710 Acquired absence of both cervix and uterus; Z82.49 Family history of ischemic heart disease and other diseases of the circulatory system; Z91.14 Patient's other noncompliance with medication regimen; B96.1 Klebsiella pneumoniae [K. pneumoniae] as the cause of diseases classified elsewhere
CPT/HCPCS: 36415; 70450; 70551; 71045; 80048; 80053; 80061; 80307; 81001; 82962; 83036; 83735; 83880; 84484; 85025; 85027; 85610; 85730; 87040; 87076; 87086; 87186; 93005; 93306; 93880; 99406; G0378; C8929; J0696; J1644; J7030